=== PATIENT | male | born 1955 | race Caucasian/White ===

== ENCOUNTER → 2022-09-22 11:01 | Outpatient (BNVA) | payer MEDICARE, OTHER, SELFPAY | PROVIDERS: PCP Family Medicine; Visit Provider Family Medicine | DX: Z13.6 Encounter for screening for cardiovascular disorders (principal); J44.9 Chronic obstructive pulmonary disease, unspecified; Z86.39 Personal history of other endocrine, nutritional and metabolic disease | CPT/HCPCS: 80053; 80061; 85025 ==

== ENCOUNTER 2022-12-07 07:12 | Outpatient (CLI) | payer MEDICARE, SELFPAY ==
--- NOTE | 2022-12-07 08:00 | CT_ITS ---
WS: [id number] LDCT LUNG CANCER SCREENING TECHNIQUE: Noncontrast CT of the chest with coronal and sagittal reformatted images. CLINICAL INFORMATION: screening COMPARISON: None. DLP: 80.51 mGy.cm DIvol: Mean CTDIvol: 1.60 (mGy) All CT scans at [facility] use at least one of these dose optimization techniques: automat ed exposure control; mA and/or kV adjustment per patient size (includes targeted exams where dose is matched to clinical indication); or iterative reconstruction. FINDINGS: Tiny noncalcified nodule RIGHT lower lobe laterally. Moderate to advanced chronic emphysematous changes. Bulla formation RIGHT upper lobe. Slight patchy i nfiltrates or fibrosis RIGHT lower lobe. Subsegmental atelectasis LEFT lower lobe. Aortic calcificati on. Coronary calcification. Adrenal glands are normal. Normal GE junction. Mild thoracic curve and th oracic kyphosis. Low attenuation lesion liver partially visualized measuring 2.8 cm. Recommend further evaluation with contrast-enhanced CT abdomen pelvis with liver protocol. CT/CT lung screening [id number] IMPRESSION: Low attenuation lesion liver partially visualized measuring 2.8 cm. Recommend further evaluation with contrast-enhanced CT abdomen pelvis with ravi er protocol. LUNG-RADS: 2-Benign Appearance or Behavior FOLLOW UP: 12 Month: Continue annual screening with LDCT
== END 2022-12-07 07:13 | disposition home or self-care (01) ==
LOC: RAD 07:15
PROVIDERS: PCP Family Medicine; Visit Provider Family Medicine
DX: Z12.2 Encounter for screening for malignant neoplasm of respiratory organs (principal); Z87.891 Personal history of nicotine dependence
CPT/HCPCS: 71271

== ENCOUNTER 2023-01-01 09:22 | Outpatient (CLI) | payer MEDICARE, SELFPAY ==
[2023-01-01] MEDS: iohexol 350 mg/mL 500 mL Btl (per mL) IV (09:53)
[2023-01-01] MEDS: iohexol 350 mg/mL 500 mL Btl (per mL) PO (09:53)
--- NOTE | 2023-01-01 10:00 | CT_ITS ---
WS: [id number] CT ABDOMEN AND PELVIS WITH AND WITHOUT CONTRAST HISTORY: liver lesion TECHNIQUE: Unenhanced axial imaging first performed through the abdomen. Post contrast imaging throug h the abdomen and pelvis. Oral contrast has been provided. Sagittal and coronal reformats are submit onur. All CT scans at [facility] use at least one of these dose optimization techniques: autom ated exposure control; mA and/or kV adjustment per patient size (includes targeted exams where dose i s matched to clinical indication); or iterative reconstruction. CONTRAST: Omnipaque 300; 100 mL IV. DLP: 2103.13 mGy.cm COMPARISON: 12/07/2022. Liver is normal size. Previously described mass within the RIGHT lobe of the liver demonstrates perip heral pooling of contrast and completely fills in and becomes completely hyperdense on delayed imagin g consistent with a hemangioma. Mass measures 1.9 x 1.4 cm. No additional masses are identified. Norm al bile duct system. Lung bases are clear. Small hiatal hernia. Normal gallbladder. Normal spleen. Negative pancreas. Athe rosclerosis aorta. No adrenal mass. No renal calcification or obstruction. No adenopathy or ascites. No GI tract obstruction. Normal appendix. A few scattered sigmoid diverticula. Normal enhancement of the urinary bladder. Prostate gland enlargement with encroachment into the urin nga bladder. No destructive bone lesions. CT/CT abdomen pelvis wo/w [id number] IMPRESSION: 1. Recently described mass in the liver corresponds to a benign hemangioma, me asures 1.9 x 1.4 cm. 2. No ascites or adenopathy. 3. Atherosclerosis aorta with no aneurysm. 4. Prostate gland enlargement. 5. Diffuse constipation. 6. Mild sigmoid diverticulosis without acute diverticulitis.
== END 2023-01-01 09:23 | disposition home or self-care (01) ==
LOC: RAD 09:28
PROVIDERS: PCP Family Medicine; Visit Provider Family Medicine
DX: K76.9 Liver disease, unspecified (principal); K59.00 Constipation, unspecified; K57.30 Diverticulosis of large intestine without perforation or abscess without bleeding; I70.0 Atherosclerosis of aorta; N40.0 Benign prostatic hyperplasia without lower urinary tract symptoms
CPT/HCPCS: 74178; Q9967

== ENCOUNTER → 2023-05-25 08:30 | Outpatient (BNVA) | payer MEDICARE, SELFPAY | PROVIDERS: PCP Family Medicine; Visit Provider Family Medicine | DX: Z86.39 Personal history of other endocrine, nutritional and metabolic disease (principal); N18.31 Chronic kidney disease, stage 3a; J43.1 Panlobular emphysema; Z85.46 Personal history of malignant neoplasm of prostate | CPT/HCPCS: 80053; 80061 ==

== ENCOUNTER 2023-07-12 08:36 | Outpatient (CLI) | payer MEDICARE, SELFPAY | END 2023-07-12 08:37 | disposition home or self-care (01) | PROVIDERS: PCP Family Medicine; Visit Provider Urology | DX: C61 Malignant neoplasm of prostate (principal) | CPT/HCPCS: 36415; 84153 ==

== ENCOUNTER → 2023-11-08 10:25 | Outpatient (BNVA) | payer OTHER, SELFPAY | PROVIDERS: PCP Family Medicine; Visit Provider Family Medicine | DX: N18.31 Chronic kidney disease, stage 3a (principal); J44.9 Chronic obstructive pulmonary disease, unspecified; E78.5 Hyperlipidemia, unspecified; Z86.39 Personal history of other endocrine, nutritional and metabolic disease | CPT/HCPCS: 80053; 85025 ==

== ENCOUNTER 2023-12-10 12:55 | Outpatient (CLI) | payer MEDICARE, SELFPAY ==
--- NOTE | 2023-12-10 13:30 | CT_ITS ---
WS: [id number] LDCT LUNG CANCER SCREENING TECHNIQUE: Noncontrast CT of the chest with coronal and sagittal reformatted images. CLINICAL INFORMATION: screening COMPARISON: 2022 DLP: 63.91 mGy.cm DIvol: Mean CTDIvol: 1.20 (mGy) All CT scans at [facility] use at least one of these dose optimization techniques: automat ed exposure control; mA and/or kV adjustment per patient size (includes targeted exams where dose is matched to clinical indication); or iterative reconstruction. FINDINGS: Moderate chronic emphysematous changes. Subsegmental atelectasis in the lower lobes. Bulla formation in the RIGHT upper lobe. No new suspicious pulmonary parenchymal abnormalities. Tiny noncal cified subpleural nodule RIGHT lower lobe is stable. Normal caliber thoracic aorta. Aortic calcification. Coronary calcification. Small calcified nodule R IGHT thyroid. No axillary lymphadenopathy. No mediastinal or hilar lymphadenopathy. Small esophageal hiatal hernia. Adrenal glands are normal. Mild thoracic kyphosis. Low-attenuation le sergio in the RIGHT hepatic lobe partially evaluated previously seen on the prior CT 01/01/2023 and show n to represent a cavernous hemangioma. IMPRESSION: CT/CT lung screening [id number] LUNG-RADS: 2-Benign Appearance or Behavior FOLLOW UP: 12 Month: Continue annual screening with LDCT
== END 2023-12-10 12:56 | disposition home or self-care (01) ==
LOC: RAD 12:55
PROVIDERS: PCP Family Medicine; Visit Provider Family Medicine
DX: Z12.2 Encounter for screening for malignant neoplasm of respiratory organs (principal); Z87.891 Personal history of nicotine dependence
CPT/HCPCS: 71271

== ENCOUNTER 2023-12-13 08:53 | Outpatient (CLI) | payer MEDICARE, SELFPAY ==
--- NOTE | 2023-12-13 09:02 | XRR_ITS ---
PROCEDURE INFORMATION: Exam: XR Lumbosacral Spine Exam date and time: 12/13/2023 9:08 AM Age: 68 years old Clinical indication: Low back pain; Patient HX: Lower back pain for 1 week from picking up a dog; Additional info: Lumbar pain TECHNIQUE: Imaging protocol: Radiologic exam of the lumbosacral spine. Views: 2 or 3 views. COMPARISON: CT abdomen pelvis wo/w [id number] 01/01/2023 10:26 AM FINDINGS: Bones/joints: No acute fracture or malalignment. Moderate degenerative disc disease at L5-S1. Mild degenerative disc disease throughout the remainder of the lumbar spine. Osteopenia. Soft tissues: Unremarkable. XR/XR lumbar spine 2-3V* [id number] IMPRESSION: 1. No acute findings. 2. Degenerative changes as detailed above.
== END 2023-12-13 08:54 | disposition home or self-care (01) ==
LOC: RAD 08:55
PROVIDERS: PCP Family Medicine; Visit Provider Nurse Practitioner Family
DX: S39.012A Strain of muscle, fascia and tendon of lower back, initial encounter (principal); X50.0XXA Overexertion from strenuous movement or load, initial encounter; M51.37 Other intervertebral disc degeneration, lumbosacral region; M85.88 Other specified disorders of bone density and structure, other site
CPT/HCPCS: 72100

== ENCOUNTER 2023-12-23 13:20 | Outpatient (CLI) | payer MEDICARE, SELFPAY ==
--- NOTE | 2023-12-23 14:00 | XR_ITS ---
WS: [id number] SCREENING DEXA SCAN [employer] CLINICAL INFORMATION: osteopenia COMPARISON: None. FINDINGS: The L1-L4 bone mineral density measures 1.177 g/cm2. This corresponds to a T score score of -0.4 and Z score of 0.1. Left femoral neck bone mineral density measures 1.015 g/cm2. This corresponds to a T score of -0.6 an d Z score of 0.1. Right femoral neck bone mineral density measures 0.999 g/cm2. This corresponds to a T score -0.7of an d Z score of 0.0. Mean femoral neck bone mineral density measures 1.007 g/cm2. This corresponds to a T score of -0.7 an d Z score of 0.0. IMPRESSION: Normal bone mineralization lumbar spine and femoral necks.. Patient's FRAX calculated 10 year probability for major osteoporotic fracture is 9.8% and osteoporoti c hip fracture is 1.9%.
== END 2023-12-23 13:21 | disposition home or self-care (01) ==
LOC: RAD 13:20
PROVIDERS: PCP Family Medicine; Visit Provider Family Medicine
DX: M85.88 Other specified disorders of bone density and structure, other site (principal)
CPT/HCPCS: 77080

== ENCOUNTER 2024-01-17 10:26 | Outpatient (CLI) | payer MEDICARE, SELFPAY | END 2024-01-17 10:27 | disposition home or self-care (01) | LOC: LAB 10:27 | PROVIDERS: PCP Family Medicine; Visit Provider Nurse Practitioner Family | DX: C61 Malignant neoplasm of prostate (principal) | CPT/HCPCS: 36415; 84153 ==

== ENCOUNTER → 2024-02-09 09:21 | Outpatient (BNVA) | payer MEDICARE, SELFPAY | PROVIDERS: PCP Family Medicine; Visit Provider Surgery | DX: Z12.11 Encounter for screening for malignant neoplasm of colon (principal) | CPT/HCPCS: 99024; 99203 ==

== ENCOUNTER → 2024-03-23 10:30 | Outpatient (BNVA) | payer MEDICARE, BC, SELFPAY | PROVIDERS: PCP Family Medicine; Visit Provider Family Medicine | DX: J43.1 Panlobular emphysema (principal); M51.37 Other intervertebral disc degeneration, lumbosacral region | CPT/HCPCS: 80048 ==

== ENCOUNTER 2024-03-30 08:53 | Day surgery (SDC) | payer MEDICARE, SELFPAY ==
[2024-03-30 09:24] VITALS: BP 120/93; PULSE 98; RESP 16; TEMP 36.8; O2SAT 92; BMI 24.5
[2024-03-30] MEDS: sodium chloride 0.9% 1,000 ML 30 ML IV (09:33)
--- NOTE | 2024-03-30 09:38 | W.PM.OPSFHP ---
Same Day Surgery H&P Indication for Procedure/HPI DATE OF PROCEDURE: March 30, 2024 CHIEF COMPLAINT/INDICATIONFOR SURGICAL PROCEDURE: need for screening colonoscopy PREOP DIAGNOSIS: rectal polyp PLANNED PROCEDURE: Operation Date: 03/30/24 10:35 Proposed Procedures p Colonoscopy 66024, G0105, Z12.11(Not Applicable) - Jonh Leone MD Medications/Allergies* Home Medications Medication Instructions Recorded Confirmed Type calcium 2 tab PO DAILY 03/23/24 03/30/24 History cwcq-Y1-rghajgyx-inosit-silicon 300 mg-200 unit-37.5 mg tablet (Bone Density Calcium Plus D) Allergies/Adverse Reactions Allergy/AdvReac Type Severity Reaction Status Date / Time No Known Allergies Allergy Verified 03/23/24 10:04 Current Medications: Generic Name Dose Route Start Last Admin Trade Name Freq PRN Reason Stop Dose Admin Sodium Chloride 1,000 mls @ 30 mls/hr 03/30/24 09:30 03/30/24 09:33 Sodium Chloride 0.9% IV 30 mls/hr .Q24H NAIF Administration Pertinent History/Comorbid Conditions* Medical History (Updated 01/14/24 @ 07:15 by Asha Arauz DO) COPD (chronic obstructive pulmonary disease) CKD (chronic kidney disease) stage 3, GFR 30-59 ml/min History of basal cell carcinoma (BCC) 2021 History of prostate cancer History of prediabetes History of mixed hyperlipidemia Surgical History (Updated 09/24/22 @ 08:25 by Asha Arauz DO) History of prostate surgery Family History (Updated 02/09/24 @ 09:32 by PATO Garcia) Breast cancer Mother Sister Social History Smoking and tobacco/nicotine status: former use of tobacco/nicotine Second hand smoke exposure: No Pertinent Exam Findings alert, oriented x 3 and clear to auscultation bilaterally Recommendations Surgery/Procedure today Coding Level of Care Code Acute Code for Chg Fwd
--- NOTE | 2024-03-30 10:46 | ANES.PREANE2 ---
Pre-Anesthetic Assessment Height/Weight: Height 1.8 m Weight 79.832 kg Temp Pulse Resp BP Pulse Ox O2 Del Method 98.2 F 98 16 120/93 92 Room Air 03/30/24 09:24 03/30/24 09:24 03/30/24 09:24 03/30/24 09:24 03/30/24 09:24 03/30/24 09:24 Preop Diagnosis: rectal polyp Operation Date: 03/30/24 10:35 Proposed Procedures p Colonoscopy 83712, G0105, Z12.11(Not Applicable) - Jonh Leone MD Familial anesthetic complications: None Was Beta Ren[place] taken within 24 hours: N/A Was Clonidine taken within 24 hours: N/A Last intake: Intake Last Liquid Date 03/29/24 Last Liquid Time 22:00 Last Solid Date 03/28/24 Last Solid Time 21:00 Social No alcohol and No tobacco (Quit 5 years ago, smoked 1-3 ppd x30 years) Exam alert, oriented x 3, clear to auscultation bilaterally and regular rate & rhythm Airway Submandibular: within normal limits Cervical ROM: within normal limits Mallampati: Class II Dentition: false History/ROS No significant history except as noted and No significant complaints Pulmonary Chronic Obstructive Pulmonary Disease CV/HEM Coronary Artery Disease Chronic Renal Insufficiency (CKD Stage 3) Hepatic None reported Metabolic Hyperlipidemia Musc/skel Lower Back Pain and Osteoarthritis/DJD Pinched nerve left hip Neuropsych None reported Anesthetic Plan ASA status: 2 Anesthesia: Anesthesia Evaluation, General and MAC Risk of > 500 ml blood loss (7ml/kg in children): No Medications/Allergies Home Medications Medication Instructions Recorded Confirmed Last Taken Type atorvastatin 80 mg tablet 80 mg PO DAILY #90 tabs 05/26/23 03/30/24 03/29/24 Rx albuterol sulfate 2.5 mg/3 mL 2.5 mg (3 mL) inhalation Q4H PRN 11/08/23 03/30/24 Unknown Rx (0.083 %) solution for nebulization shortness of breath or wheezing #180 mL albuterol sulfate 90 mcg/actuation 2 puff inhalation Q6H PRN 11/08/23 03/30/24 Unknown Rx aerosol inhaler (Ventolin HFA) shortness of breath or wheezing #8.5 grams calcium 2 tab PO DAILY 03/23/24 03/30/24 03/29/24 History xbxr-K6-wgyggcdy-inosit-silicon 300 mg-200 unit-37.5 mg tablet (Bone Density Calcium Plus D) fluticasone fur. 200 mcg-umeclid 1 inh inhalation Q24H #60 ea 03/23/24 03/30/24 03/29/24 Rx 62.5 mcg-vilant 25 mcg inhalat.powder (Trelegy Ellipta) Allergies Allergy/AdvReac Type Severity Reaction Status Date / Time No Known Allergies Allergy Verified 03/23/24 10:04 Current Medications Generic Name Dose Route Start Last Admin Trade Name Freq PRN Reason Stop Dose Admin Sodium Chloride 1,000 mls @ 30 mls/hr 03/30/24 09:30 03/30/24 09:33 Sodium Chloride 0.9% IV 30 mls/hr .Q24H NAIF Administration PFSH Anesthesia Medical History COPD (chronic obstructive pulmonary disease) CKD (chronic kidney disease) stage 3, GFR 30-59 ml/min History of basal cell carcinoma (BCC) 2021 History of prostate cancer History of prediabetes History of mixed hyperlipidemia Surgical History History of prostate surgery Family History Mother Breast cancer Sister Breast cancer Social History Smoking and tobacco/nicotine status: former use of tobacco/nicotine Second hand smoke exposure: No Data Anesthesia Cardiac Studies: No Data to Display
[2024-03-30 12:03] VITALS: BP 142/94; PULSE 79; RESP 14; TEMP 36.5; O2SAT 98
[2024-03-30 12:18] VITALS: BP 140/74; PULSE 84; RESP 18; O2SAT 97
--- NOTE | 2024-03-30 12:45 | ANE.PACU2 ---
Inpatient post-anesthesia follow up: Airway intact: Yes Vital signs: Temperature 97.7 F Pulse Rate 84 Respiratory Rate 18 Blood Pressure 140/74 Pulse Oximetry 97 Oxygen Delivery Me thod Room Air Oxygen Flow Rate Fraction of Inspir ed Oxygen Hydration adequate: Yes Nausea and vomiting: No Pain level: 1 Mental status: Baseline
== END 2024-03-30 12:46 | disposition home or self-care (01) ==
PROVIDERS: PCP Family Medicine; Visit Provider Surgery
PROC: 0DJD8ZZ Inspection of Lower Intestinal Tract, Via Natural or Artificial Opening Endoscopic (ICD-10-PCS; CPT 45330; 2024-03-30 10:35)
DX: Z12.11 Encounter for screening for malignant neoplasm of colon (principal); D12.8 Benign neoplasm of rectum; J44.9 Chronic obstructive pulmonary disease, unspecified; N18.30 Chronic kidney disease, stage 3 unspecified; E78.2 Mixed hyperlipidemia; Z85.46 Personal history of malignant neoplasm of prostate; Z87.891 Personal history of nicotine dependence; I25.10 Atherosclerotic heart disease of native coronary artery without angina pectoris
CPT/HCPCS: 45338; 88305; J2704; J7030

== ENCOUNTER → 2024-04-12 13:03 | Outpatient (BNVA) | payer MEDICARE, SELFPAY | PROVIDERS: PCP Family Medicine Adult Medicine; Visit Provider Surgery | DX: Z09 Encounter for follow-up examination after completed treatment for conditions other than malignant neoplasm | CPT/HCPCS: 99213 ==

== ENCOUNTER 2024-04-19 07:15 | Outpatient (CLI) | payer MEDICARE, SELFPAY ==
--- NOTE | 2024-04-19 07:15 | MR_ITS ---
WS: [id number] MRI LUMBAR SPINE NONCONTRAST HISTORY: low back pain with left-sided sciatica COMPARISON: None available. TECHNIQUE: Sagittal and axial multisequence imaging is submitted. Slight increase in the thoracic kyphosis. Normal lumbar alignment with no compression fractures or marrow edema. Disc spaces and vertebral body heights are well-preserved. Conus terminates normally at L1-2 disc level. L1-L2: Normal. L2-L3: Normal. L3-L4: Mild annular disc bulging. Mild ligamentum flavum and facet arthritis. No disc contact on the nerve roots. L4-L5: Mild disc bulging. Disc is bulging asymmetric to the LEFT and there is a LEFT contacting the L EFT lateral thecal sac and the traversing contacting the LEFT lateral thecal sac and the traversing L EFT L5 nerve root. There is lesser contact into the subarticular recess on the RIGHT with encroachmen t upon the traversing RIGHT L5 nerve root also. Mild central stenosis. Mild foraminal stenosis. Degen erative fluid in the LEFT facet joint. L5-S1: Mild annular disc bulging. Disc encroachment upon the S1 nerve roots bilaterally. Very mild lott barticular recess and foraminal stenosis. Paravertebral soft tissues are negative. MR/MR lumbar spine wo con* [id number] IMPRESSION: 1. No acute lumbar spine fracture. 2. L4-5: Moderate-sized LEFT paracentral and proximal foraminal disc protrusio n with significant contact and displacement on the traversing LEFT L5 nerve ronnie t. 3. L4-5: Disc bulging extending into the subarticular recesses. There is addit ional contact on the RIGHT L5 nerve root but to a lesser extent than on the LEF T. Mild foraminal stenosis bilaterally. 4. L5-S1: Mild subarticular recess and foraminal disc encroachment.
== END 2024-04-19 07:16 | disposition home or self-care (01) ==
PROVIDERS: PCP Family Medicine Adult Medicine; Visit Provider Family Medicine
DX: M54.42 Lumbago with sciatica, left side (principal); M51.36 Other intervertebral disc degeneration, lumbar region; M51.26 Other intervertebral disc displacement, lumbar region; M48.061 Spinal stenosis, lumbar region without neurogenic claudication; M51.37 Other intervertebral disc degeneration, lumbosacral region; M48.07 Spinal stenosis, lumbosacral region; M47.896 Other spondylosis, lumbar region
CPT/HCPCS: 72148

== ENCOUNTER → 2024-05-02 09:40 | Outpatient (BNVA) | payer MEDICARE, SELFPAY | PROVIDERS: PCP Family Medicine Adult Medicine; Referring Provider Family Medicine Adult Medicine; Visit Provider Orthopaedic Surgery | DX: M54.42 Lumbago with sciatica, left side (principal); M51.37 Other intervertebral disc degeneration, lumbosacral region | CPT/HCPCS: 36415; 72110; 80053; 81003; 81015; 85025; 99204 ==

== ENCOUNTER → 2024-05-23 08:43 | Outpatient (BNVA) | payer MEDICARE, SELFPAY | PROVIDERS: PCP Family Medicine Adult Medicine; Visit Provider Family Medicine | DX: Z01.818 Encounter for other preprocedural examination (principal); R94.31 Abnormal electrocardiogram [ECG] [EKG] | CPT/HCPCS: 93005 ==

== ENCOUNTER → 2024-05-24 15:26 | Outpatient (BNVA) | payer MEDICARE, SELFPAY | PROVIDERS: PCP Family Medicine Adult Medicine; Visit Provider Family Medicine | DX: Z01.818 Encounter for other preprocedural examination (principal) | CPT/HCPCS: 93005 ==

== ENCOUNTER 2024-05-26 06:07 | Day surgery (SDC) | payer MEDICARE, SELFPAY ==
[2024-05-26] VITALS (12 sets, daily range): BP systolic 120–173; BP diastolic 81–103; PULSE 72–85; RESP 8–23; TEMP 36.1–36.3; O2SAT 91–100; BMI 25.0
[2024-05-26] MEDS: sodium chloride 0.9% 1,000 ML 30 ML IV (06:35)
--- NOTE | 2024-05-26 08:08 | ANES.PREANE2 ---
Pre-Anesthetic Assessment Height/Weight: Height 1.8 m Temp Pulse Resp BP Pulse Ox O2 Del Method 97.3 F L 72 18 152/103 96 Room Air 05/26/24 06:25 05/26/24 06:25 05/26/24 06:25 05/26/24 06:25 05/26/24 06:25 05/26/24 06:25 Preop Diagnosis: Lumbar stenosis with neurogenic claudication Operation Date: 05/26/24 08:00 Proposed Procedures p Lumbar Spine Decompression Lumbar Decompression(Not Applicable) - Lc Ray, DO Was Beta Reno taken within 24 hours: N/A Last intake: Intake Last Liquid Date 05/25/24 Last Liquid Time 21:30 Last Solid Date 05/25/24 Last Solid Time 16:00 Social No alcohol and No tobacco Exam alert, oriented x 3, clear to auscultation bilaterally and regular rate & rhythm Airway Submandibular: within normal limits Cervical ROM: within normal limits Mallampati: Class II Dentition: false Pulmonary Chronic Obstructive Pulmonary Disease CV/HEM None reported Metabolic Hyperlipidemia Anesthetic Plan ASA status: 3 Anesthesia: General Medications/Allergies Home Medications Medication Instructions Recorded Confirmed Last Taken Type albuterol sulfate 2.5 mg/3 mL 2.5 mg (3 mL) inhalation Q4H PRN 11/08/23 05/26/24 Unknown Rx (0.083 %) solution for nebulization shortness of breath or wheezing #180 mL albuterol sulfate 90 mcg/actuation 2 puff inhalation Q6H PRN 11/08/23 05/26/24 05/25/24 Rx aerosol inhaler (Ventolin HFA) shortness of breath or wheezing #8.5 grams fluticasone fur. 200 mcg-umeclid 1 inh inhalation Q24H #60 ea 03/23/24 05/26/24 05/25/24 Rx 62.5 mcg-vilant 25 mcg inhalat.powder (Trelegy Ellipta) atorvastatin 80 mg tablet 80 mg PO DAILY #90 tabs 05/16/24 05/26/24 05/18/24 Rx Allergies Allergy/AdvReac Type Severity Reaction Status Date / Time No Known Allergies Allergy Verified 05/25/24 12:40 Current Medications Generic Name Dose Route Start Last Admin Trade Name Freq PRN Reason Stop Dose Admin Sodium Chloride 1,000 mls @ 30 mls/hr 05/26/24 06:30 05/26/24 06:35 Sodium Chloride 0.9% IV 05/27/24 06:29 30 mls/hr .Q24H NAIF Administration PFSH Anesthesia Medical History Protruded lumbar disc COPD (chronic obstructive pulmonary disease) CKD (chronic kidney disease) stage 3, GFR 30-59 ml/min History of basal cell carcinoma (BCC) 2021 History of prostate cancer History of prediabetes History of mixed hyperlipidemia Surgical History Hx of colonoscopy with polypectomy [place] in ~2020, 03/30/[address] Leone but was unable to do a full colonoscopy due to severe diverticulosis. History of prostate surgery Family History Mother Breast cancer Sister Breast cancer Social History Smoking and tobacco/nicotine status: never used tobacco/nicotine Second hand smoke exposure: No Data Anesthesia Cardiac Studies: No Data to Display
--- NOTE | 2024-05-26 08:33 | W.PM.OPSUD ---
Surgery/Procedure H&P Update DATE OF PROCEDURE: May 26, 2024 DATE H&P PERFORMED: 05/23/24 H&P UPDATE INFORMATION: I have reviewed H&P completed within last 30 days, I have examined patient prior to procedure and No changes to prior documentation PREOP DIAGNOSIS: Lumbar stenosis with neurogenic claudication PLANNED PROCEDURE: Operation Date: 05/26/24 08:00 Proposed Procedures p Lumbar Spine Decompression Lumbar Decompression(Not Applicable) - Lc Ray DO
[2024-05-26] MEDS: ceFAZolin 2,000 mg SDV 2000 MG IVP (09:07)
[2024-05-26] MEDS: lidocaine-epi 1% 20 mL INJ 10 ML INJECTION (10:01)
--- NOTE | 2024-05-26 10:18 | PM.OP ---
Operative Report Date of procedure: May 26, 2024 Pre-op diagnosis: Lumbar stenosis with neurogenic claudication Post-op diagnosis: same Procedure done: L4-5 laminectomy with partial facetectomy and discectomy Surgeon: Lc Ray DO Estimated blood loss (mL): 15 Procedure: L4-5 laminectomy with partial facetectomy and discectomy Patient is brought to the operative suite. After undergoing anesthesia they are placed in the prone position. All areas of impingement are well padded. Patient is then prepped and draped in the normal sterile fashion. A skin incision is made over the L4/5 level. This is confirmed under c-arm guidance. A series of dilators are passed and the tubular retractor is docked on the L5 lamina. A bovie is used to clear the soft tissue off the lamina and the L 4/5 facet joint. A high speed von is then used to perform the laminectomy and take down the medial aspect of the L 4/5 facet joint. A kerrison rongeure was then used to take down the remaining lamina and smooth the edge of the laminectomy up to the point where the ligamentum flavum attaches. Attention was then brought to the medial aspect of the facet joint. The remaining medial aspect of the superior and inferior aspect of the facet joint were taken down with the kerrison from the pedicle of L4 to L 5. The facet joint had significant hypertrophy. Attention was then brought to the Ligamentum Flavum. The ligament was taken down from the lamina of L4 to L5 and out medially to the remaining facet joint. The ligament was thickened. The dura was then exposed. The dura was in good repair. The L5 nerve was root retracted medially with a Kain retractor. The disc was identified a small hole was made in the annulus with a curved curette. Micropituitary was used to take out loose fragments. And then the disc base was irrigated and large tonsils of disc were removed. The L4 nerve was then traced with a curette out the L4/5 foramen and found to be adequately decompressed. The L5 nerve was traced with a curette around the L5 pedicle. The lateral recess was opened with a kerrison helping to further decompress the L5 nerve. Wound is then irrigated copiously with saline and surgiflo is used to stop any bleeding. The tubular retractor is removed and the wound is closed with vicryl and monocryl suture. Glue is then used to protect the wound. A sterile dressing is then placed. Patient was then placed in the supine position and transferred to the PACU in stable condition.
[2024-05-26] MEDS: meperidine 50 mg/mL INJ 12.5 MG IVP (11:23)
--- NOTE | 2024-05-26 12:01 | XR_ITS ---
WS: [id number] Lumbar spine, C-arm fluoroscopy views, 05/26/2024 Clinical Data: or pic, decompression Comparison: Lumbar spine, 05/02/2024 Findings: Dr. Ray performed a lumbar decompression. XR/XR lumbar spine 1V [id number] Impression: Lumbar decompression.
--- NOTE | 2024-05-26 12:42 | ANE.PACU2 ---
Inpatient post-anesthesia follow up: Airway intact: Yes Vital signs: Temperature 97.0 F Pulse Rate 80 Respiratory Rate 17 Blood Pressure 146/81 Pulse Oximetry 91 Oxygen Delivery Me thod Room Air Oxygen Flow Rate 6 Fraction of Inspir ed Oxygen Hydration adequate: Yes Nausea and vomiting: No Pain level: controlled Mental status: Baseline
== END 2024-05-26 12:32 | disposition home or self-care (01) ==
PROVIDERS: PCP Family Medicine Adult Medicine; Visit Provider Orthopaedic Surgery
PROC: (CPT 63005; principal; 2024-05-26 08:00)
DX: M48.062 Spinal stenosis, lumbar region with neurogenic claudication (principal); J44.9 Chronic obstructive pulmonary disease, unspecified; E78.5 Hyperlipidemia, unspecified; N18.30 Chronic kidney disease, stage 3 unspecified; Z85.46 Personal history of malignant neoplasm of prostate; E78.2 Mixed hyperlipidemia
CPT/HCPCS: 63047; 72020; 76000; J0131; J0690; J1100; J2175; J2405; J2704; J3010; J3490; J7030

== ENCOUNTER → 2024-06-15 12:21 | Outpatient (BNVA) | payer MEDICARE, SELFPAY | PROVIDERS: PCP Family Medicine Adult Medicine; Visit Provider Orthopaedic Surgery | DX: Z09 Encounter for follow-up examination after completed treatment for conditions other than malignant neoplasm (principal) | CPT/HCPCS: 99024 ==

== ENCOUNTER 2024-07-10 11:00 | Oncology outpatient (recurring) (ONCR) | payer MEDICARE, SELFPAY ==
--- NOTE | 2024-07-10 12:58 | N.ONRAD NP_ITS ---
Radiation Oncology New Patient Visit Patient: Dat Littlejohn MR#: [id number] : 1955> Age: 69> Sex: Male> Dictated by: Dr. Mara Carpio Date of Service: 07/10/2024 Referring Physician(s) : Dr. Corea Diagnosis: Adenocarcinoma the prostate Kulpmont score 4+7/John score 3+3 Radiotherapy to date: Summary > No prior radiation therapy. Chief Complaint / History of Present Illness: Mr. Barker is 69-year-old gentleman who was followed for his prostate cancer when he lived in [place]. He recently in the last year moved here to [place]. He has had a recent biopsy in March which confirmed his Kulpmont score 6 and 7 adenocarcinoma the prostate which was low-volume all located on the left side was less than 5% of 2 cores positive. He has had a bone scan and CT scan which did not show any metastatic disease. He is here today to discuss radiation as a treatment option. Current Medications: albuterol sulfate 2.5 mg (3 mL) inhalation Q4H PRN albuterol sulfate 90 mcg/actuation (Ventolin HFA) 2 puffs inhalation Q6H PRN atorvastatin 80 mg PO DAILY hihulmcoupd-vlshauqvn-pidquwfh 200-62.5-25 mcg (Trelegy Ellipta) 1 inh inhalation Q24H Allergies: NKA Medical History: Protruded lumbar disc COPD (chronic obstructive pulmonary disease) CKD (chronic kidney disease) stage 3, GFR 30-59 ml/min History of basal cell carcinoma (BCC) 2021 History of prostate cancer History of prediabetes History of mixed hyperlipidemia Surgical History Hx of colonoscopy with polypectomy [place] in ~2020, 03/30/[address] Leone but was unable to do a full colonoscopy due to severe diverticulosis. History of prostate surgery Surgical History: laminectomy, T&A Family History: MotherBreast cancer, SisterBreast cancer Social History: Smoking and tobacco/nicotine status: never used tobacco/nicotine Second hand smoke exposure: No Current Complaints / Review of Systems: . Vital Signs: Performed on 07/10/2024 11:11 AM BMI - 25.161 kg/m2 (high), Height - 71 in, Weight - 180.4 lbs, Temperature - 97.5 f, Pulse - 70 /min, Respiration - 18 /min, O2 Sat - 96 %, Pain - 0, Fatigue - 0 and BP - 141/ 88 mm(hg)(high/). General: Patient is in no apparent distress. He is companied by his . HEENT: Normocephalic atraumatic. Pupils are equal, sclera clear, extraocular muscles intact Pulmonary: Respiratory rate is regular nonlabored Cardiovascular: Regular rate and rhythm Abdomen: Abdomen is flat with minimal adipose tissue Extremities: Without clubbing cyanosis or edema Neurological: Alert and orient x 3. Gait and speech within normal limits Psychological: Affect appropriate for current situation Pathology: Adenocarcinoma prostate John score 6 and 7 Imaging: See HPI Impression: Adenocarcinoma the prostate Kulpmont score 6 and 7 with PSA 5.28 all scans negative for metastatic disease Plan: I reviewed with Mr. Barker his past history. We talked about the results of his scans. Reviewed the role of radiation and prostate cancer. We talked about the simulation process. We reviewed the daily treatment regiment. We discussed the risks and side effects both acute and long-term. After some discussion and answering additional questions he at this point has elected proceed with the radiation. Will call Dr. Corea's office and see if we can get him set up in the next week or 2 to have his fiducials and [employer] placed. After that we will have him return to undergo simulation. Plan for a 5 and half week course of treatment to the prostate only. Signed by: 07/10/2024 12:55:54 PM <<Signature on File>> Time spent with patient:45 CPT Code: CPT Code:
== END 2024-08-03 23:59 | disposition home or self-care (01) ==
PROVIDERS: PCP Family Medicine Adult Medicine; Visit Provider Radiology Radiation Oncology
DX: C61 Malignant neoplasm of prostate (principal)
CPT/HCPCS: 99205

== ENCOUNTER → 2024-07-13 10:09 | Outpatient (BNVA) | payer MEDICARE, SELFPAY | PROVIDERS: PCP Family Medicine Adult Medicine; Visit Provider Orthopaedic Surgery | DX: Z98.890 Other specified postprocedural states (principal) | CPT/HCPCS: 99024 ==

== ENCOUNTER → 2024-08-24 09:48 | Outpatient (BNVA) | payer MEDICARE, SELFPAY | PROVIDERS: PCP Family Medicine Adult Medicine; Visit Provider Orthopaedic Surgery | DX: Z98.890 Other specified postprocedural states (principal) | CPT/HCPCS: 99024 ==

== ENCOUNTER 2024-10-03 13:39 | Oncology outpatient (recurring) (ONCR) | payer MEDICARE, SELFPAY ==
--- NOTE | 2024-09-26 11:34 | ONCRAD TMN_ITS ---
Radiation Oncology Weekly Treatment Management Patient: Dat Littlejohn MR#: [id number] : 1955 Attending Physician: Dr. Mara Carpio Date of Service: 09/26/2024 Fractions: 2 out of 28 Referring Physician(s) : Diagnosis: C61 - Malignant neoplasm of prostate, Diagnosed 09/14/2024 (Active) Radiotherapy to date: Course: Prostate/sv, Treatment Site: Prostate/sv, Ref. ID: [id number], Energy: 15X, Dose/Fx (cGy): 250, #Fx: 2 / , Dose Correction (cGy): 0, Total Dose Delivered (cGy): 500, Start Date: 09/25/2024, Elapsed Days: 1 Reason for visit: The patient is being seen today as part of their regularly scheduled weekly on treatment visits to assess for acute toxicities from radiotherapy. Review of Systems: Patient had a few questions today all of which were answered Vital Signs: Performed on 09/26/2024 10:26 AM BMI - 23.933 kg/m2 (high), Height - 71 in, Weight - 171.6 lbs, Temperature - 98.0 f, Pulse - 84 /min, Respiration - 16 /min, O2 Sat - 96 %, Pain - 0, Fatigue - 0 and BP - 154/ 68 mm(hg)(high/). Physical Exam: No changes on exam Imaging: Radiation therapy imaging related to accurate target localization (i.e. KV, MV and CBCT) was reviewed. Appropriate changes, if any, were made to ensure treatment accuracy. Plan: Will continue with his treatments as planned Signed by: Dr. Mara Carpio 09/26/2024 11:32:43 AM
--- NOTE | 2024-10-05 09:08 | ONCRAD TMN_ITS ---
Radiation Oncology Weekly Treatment Management Patient: Annetta Anderson MR#: [id number] : 1955> Attending Physician: Dr. Mara Carpio Date of Service: 10/03/2024 Fractions: 6 out of 28 Referring Physician(s) : Diagnosis: C61 - Malignant neoplasm of prostate, Diagnosed 09/14/2024 (Active) Radiotherapy to date: Course: Prostate/sv, Treatment Site: Prostate/sv, Ref. ID: [id number], Energy: 15X, Dose/Fx (cGy): 250, #Fx: , Dose Correction (cGy): 0, Total Dose Delivered (cGy): 1,500, Start Date: 09/25/2024, Elapsed Days: 8 Reason for visit: The patient is being seen today as part of their regularly scheduled weekly on treatment visits to assess for acute toxicities from radiotherapy. Review of Systems: Patient had frequent stools which are soft. He has 2-3 a day. Vital Signs: Performed on 10/03/2024 2:27 PM BMI - 24.185 kg/m2 (high), Height - 71 in, Weight - 173.4 lbs, Temperature - 97.9 f, Pulse - 74 /min, Respiration - 18 /min, O2 Sat - 94 % (low), Pain - 0, Fatigue - 0 and BP - 160/ 94 mm(hg)(high). Physical Exam: No changes on exam Imaging: Radiation therapy imaging related to accurate target localization (i.e. KV, MV and CBCT) was reviewed. Appropriate changes, if any, were made to ensure treatment accuracy. Plan: I reviewed with him that the frequent stools is normal for the changes to be seen with radiation. I cautioned him about taking anything to slow them down and less he became sore enough that he needed to. I reminded him that 1 dose of Imodium may be enough to last 2 or 3 days. Will otherwise continue with his treatments as planned Signed by: Dr. Mara Carpio 10/05/2024 9:05:50 AM
== END 2024-10-03 23:59 | disposition home or self-care (01) ==
PROVIDERS: PCP Family Medicine Adult Medicine; Visit Provider Radiology Radiation Oncology
DX: Z51.0 Encounter for antineoplastic radiation therapy (principal); C61 Malignant neoplasm of prostate
CPT/HCPCS: 77300; 77301; 77334; 77338; 77385; 99024

== ENCOUNTER 2024-10-27 07:22 | Oncology outpatient (recurring) (ONCR) | payer MEDICARE, SELFPAY ==
--- NOTE | 2024-10-10 14:07 | ONCRAD TMN_ITS ---
Radiation Oncology Weekly Treatment Management Patient: Dat Littlejohn MR#: [id number] : 1955 Attending Physician: Dr. Mara Carpio Date of Service: 10/10/2024 Fractions 10 out of 28 Referring Physician(s) : Diagnosis: C61 - Malignant neoplasm of prostate, Diagnosed 09/14/2024 (Active) Radiotherapy to date: Course: Prostate/sv, Treatment Site: Prostate/sv, Ref. ID: [id number], Energy: 15X, Dose/Fx (cGy): 250, #Fx: , Dose Correction (cGy): 0, Total Dose Delivered (cGy): 2,500, Start Date: 09/25/2024, Elapsed Days: 15 Reason for visit: The patient is being seen today as part of their regularly scheduled weekly on treatment visits to assess for acute toxicities from radiotherapy. Review of Systems: Patient denies any complaints other than weak stream Vital Signs: Performed on 10/10/2024 1:42 PM BMI - 24.157 kg/m2 (high), Height - 71 in, Weight - 173.2 lbs, Temperature - 97.2 f, Pulse - 73 /min, Respiration - 18 /min, O2 Sat - 98 %, Pain - 0, Fatigue - 0 and BP - 145/ 78 mm(hg)(high/). Physical Exam: No changes on exam Imaging: Radiation therapy imaging related to accurate target localization (i.e. KV, MV and CBCT) was reviewed. Appropriate changes, if any, were made to ensure treatment accuracy. Plan: Will continue with treatments as planned Signed by: Dr. Mara Carpio 10/10/2024 2:06:54 PM
--- NOTE | 2024-10-17 14:19 | ONCRAD TMN_ITS ---
Radiation Oncology Weekly Treatment Management Patient: aDt Littlejohn MR#: [id number] : 1955 Attending Physician: Dr. Mara Carpio Date of Service: 10/17/2024 Fractions: 14 out of 28 Referring Physician(s) : Diagnosis: C61 - Malignant neoplasm of prostate, Diagnosed 09/14/2024 (Active) Radiotherapy to date: Course: Prostate/sv, Treatment Site: Prostate/sv, Ref. ID: [id number], Energy: 15X, Dose/Fx (cGy): 250, #Fx: , Dose Correction (cGy): 0, Total Dose Delivered (cGy): 3,500, Start Date: 09/25/2024, Elapsed Days: 22 Reason for visit: The patient is being seen today as part of their regularly scheduled weekly on treatment visits to assess for acute toxicities from radiotherapy. Review of Systems: He denies any changes in bladder habits. He does have softer stools than normal. Vital Signs: Performed on 10/17/2024 2:00 PM BMI - 23.906 kg/m2 (high), Height - 71 in, Weight - 171.4 lbs, Temperature - 97.9 f, Pulse - 77 /min, Respiration - 16 /min, O2 Sat - 96 %, Pain - 0, Fatigue - 0 and BP - 139/ 84 mm(hg). Physical Exam: No changes on exam Imaging: Radiation therapy imaging related to accurate target localization (i.e. KV, MV and CBCT) was reviewed. Appropriate changes, if any, were made to ensure treatment accuracy. Plan: Will continue with treatments as planned Signed by: Dr. Mara Carpio 10/17/2024 2:18:53 PM
--- NOTE | 2024-10-24 14:23 | ONCRAD TMN_ITS ---
Radiation Oncology Weekly Treatment Management Patient: Annetta Anderson MR#: [id number] : 1955> Attending Physician: Dr. Mara Carpio Date of Service: 10/24/2024 Fractions: 19 out of 28 Referring Physician(s) : Diagnosis: C61 - Malignant neoplasm of prostate, Diagnosed 09/14/2024 (Active) Radiotherapy to date: Course: Prostate/sv, Treatment Site: Prostate/sv, Ref. ID: [id number], Energy: 15X, Dose/Fx (cGy): 250, #Fx: , Dose Correction (cGy): 0, Total Dose Delivered (cGy): 4,750, Start Date: 09/25/2024, Elapsed Days: 29 Reason for visit: The patient is being seen today as part of their regularly scheduled weekly on treatment visits to assess for acute toxicities from radiotherapy. Review of Systems: Patient denies any complaints Vital Signs: Performed on 10/24/2024 1:57 PM BMI - 23.71 kg/m2 (high), Height - 71 in, Weight - 170 lbs, Temperature - 97.5 f, Pulse - 73 /min, Respiration - 18 /min, O2 Sat - 97 %, Pain - 0, Fatigue - 0 and BP - 148/ 82 mm(hg)(high/). Physical Exam: No changes on exam Imaging: Radiation therapy imaging related to accurate target localization (i.e. KV, MV and CBCT) was reviewed. Appropriate changes, if any, were made to ensure treatment accuracy. Plan: Continue with treatments as planned Signed by: Dr. Mara Carpio 10/24/2024 2:22:10 PM
== END 2024-10-27 23:59 | disposition home or self-care (01) ==
PROVIDERS: PCP Family Medicine Adult Medicine; Visit Provider Radiology Radiation Oncology
DX: Z51.0 Encounter for antineoplastic radiation therapy (principal); C61 Malignant neoplasm of prostate
CPT/HCPCS: 77336; 77385; 99024

== ENCOUNTER 2024-11-03 07:41 | Oncology outpatient (recurring) (ONCR) | payer MEDICARE, SELFPAY ==
--- NOTE | 2024-10-31 14:08 | ONCRAD TMN_ITS ---
Radiation Oncology Weekly Treatment Management Patient: Dat Littlejohn MR#: [id number] : 1955 Attending Physician: Dr. Mara Carpio Date of Service: 10/31/2024 Fractions: 24 out of 28 Referring Physician(s) : Diagnosis: C61 - Malignant neoplasm of prostate, Diagnosed 09/14/2024 (Active) Radiotherapy to date: Course: Prostate/sv, Treatment Site: Prostate/sv, Ref. ID: [id number], Energy: 15X, Dose/Fx (cGy): 250, #Fx: , Dose Correction (cGy): 0, Total Dose Delivered (cGy): 6,000, Start Date: 09/25/2024, Elapsed Days: 36 Reason for visit: The patient is being seen today as part of their regularly scheduled weekly on treatment visits to assess for acute toxicities from radiotherapy. Review of Systems: Patient remains asymptomatic Vital Signs: Performed on 10/31/2024 1:48 PM BMI - 23.822 kg/m2 (high), Height - 71 in, Weight - 170.8 lbs, Temperature - 97 f, Pulse - 61 /min, Respiration - 16 /min, O2 Sat - 96 %, Pain - 0, Fatigue - 0 and BP - 155/ 87 mm(hg)(high/). Physical Exam: No changes on exam Imaging: Radiation therapy imaging related to accurate target localization (i.e. KV, MV and CBCT) was reviewed. Appropriate changes, if any, were made to ensure treatment accuracy. Plan: Will continue with treatments as planned Signed by: Dr. Mara Carpio 10/31/2024 2:06:56 PM
== END 2024-11-03 23:59 | disposition home or self-care (01) ==
PROVIDERS: PCP Family Medicine Adult Medicine; Visit Provider Radiology Radiation Oncology
DX: Z51.0 Encounter for antineoplastic radiation therapy (principal); C61 Malignant neoplasm of prostate; R39.12 Poor urinary stream
CPT/HCPCS: 77336; 77385; 99024

== ENCOUNTER 2024-11-06 07:57 | Oncology outpatient (recurring) (ONCR) | payer MEDICARE, SELFPAY ==
--- NOTE | 2024-11-06 10:26 | N.ONRD TS_ITS ---
Radiation Oncology Treatment Summary Patient: Annetta>Monica MR#: [id number] : 1955> Age: 69> Sex: Male Dictated by: Dr. Mara Carpio Date of Service: 11/06/2024 Referring Physician(s) : Diagnosis: C61 - Malignant neoplasm of prostate, Diagnosed 09/14/2024 (Active) Radiotherapy to Date: Course: Prostate/sv, Treatment Site: Prostate/sv, Ref. ID: [id number], Energy: 15X, Dose/Fx (cGy): 250, #Fx: , Dose Correction (cGy): 0, Total Dose Delivered (cGy): 7,000, Start Date: 09/25/2024, End Date: 11/06/2024, Elapsed Days: 42 Clinical Summary: The patient tolerated RT well. He had minimal changes in bowel or bladder habits. He will return in 1 month with a PSA Plan: End of treatment today. Continue on the above medication until the skin reaction resolves. Follow up in one month. Signed by: Dr. Mara Carpio>11/06/2024 10:25:21 AM <<Signature on File>>
== END 2024-12-01 23:59 | disposition home or self-care (01) ==
PROVIDERS: PCP Family Medicine Adult Medicine; Visit Provider Radiology Radiation Oncology
DX: Z51.0 Encounter for antineoplastic radiation therapy (principal); C61 Malignant neoplasm of prostate; R39.12 Poor urinary stream
CPT/HCPCS: 77336; 77385; 99024

== ENCOUNTER → 2024-11-29 07:59 | Outpatient (BNVA) | payer MEDICARE, SELFPAY | PROVIDERS: PCP Family Medicine; Visit Provider Family Medicine | DX: R73.03 Prediabetes (principal); E78.00 Pure hypercholesterolemia, unspecified; K76.9 Liver disease, unspecified | CPT/HCPCS: 80061; 83036; 84443 ==

== ENCOUNTER 2024-12-11 10:00 | Oncology outpatient (recurring) (ONCR) | payer MEDICARE, SELFPAY ==
--- NOTE | 2024-12-04 08:25 | ONCRAD EPV_ITS ---
Radiation Oncology Established Patient Visit Patient: Annetta Daugherty [id number] : 1955> Age: 69> Sex: Male> Dictated by: Ramón Smart Date of Service: 12/04/2024 Referring Physician(s) : Diagnosis: C61 - Malignant neoplasm of prostate, Diagnosed 09/14/2024 (Active) Radiotherapy to Date: Course: Prostate/sv, Treatment Site: Prostate/sv, Ref. ID: [id number], Energy: 15X, Dose/Fx (cGy): 250, #Fx: , Dose Correction (cGy): 0, Total Dose Delivered (cGy): 7,000, Start Date: 09/25/2024, End Date: 11/06/2024, Elapsed Days: 42 Current History: This is a pleasant 69-year-old male who treated for definitive XRT to the prostate. Patient had pretreatment PSA in the sixes and low-volume disease. Patient underwent 7000 cGy in 28 fractions over 42 elapsed days completing this on 11/06/2024. Current Medications: Per [facility] Allergies: Per Office [facility] Current Complaints / Review of Systems: As above Vital Signs: Performed on 12/04/2024 8:06 AM BMI - 23.989 kg/m2 (high), Height - 71 in, Weight - 172 lbs, Temperature - 97.4 f, Pulse - 66 /min, Respiration - 18 /min, O2 Sat - 96 %, Pain - 0, Fatigue - 0 and BP - 147/ 80 mm(hg)(high/). Physical Exam: General: Alert and oriented x 3. No acute distress. HEENT: Normocephalic, atraumatic. Extraocular Movements Intact: Pupils Equal, Round, Reactive to Light and Accommodation: Sclerae anicteric. Oral cavity is clear without lesions, masses or ulcers. NECK: Supple without supraclavicular or jugular lymphadenopathy. LUNGS: Clear to auscultation bilaterally without rales, rhonchi or wheeze. HEART: Regular rate and rhythm, normal S1 and S2 without murmur, gallop or rub. MUSCULOSKELETAL: No tenderness or percussion pain over the axial skeleton, scapulae or pelvis. ABDOMEN: Soft, nontender, nondistended without masses or organomegaly. Bowell sounds are present. EXTREMITIES: No peripheral edema is identified. Limited motor and sensory examination are grossly intact and symmetric bilaterally. NEUROLOGIC: Cranial nerves II ???XII are grossly intact. Normal sensation, strength 5/5 in all extremities, normal gait, no ataxia. Performance Status: KPS 90 Lab: PSA next visit Pathology: Primary, c61 - malignant neoplasm of prostate, Diagnosed 09/14/2024 (active) . Imaging: See HPI Impression: GS 7 left sided prostate cancer PLAN: Will get PSA prior to next visit RTC March 07, 2025 at 0900 hrs. or sooner if need be. Signed by: 12/04/2024 8:23:50 AM <<Signature on File>> Time spent with patient: CPT Code: * CPT Code: *
--- NOTE | 2024-12-11 10:00 | CT_ITS ---
WS: [id number] LDCT LUNG CANCER SCREENING TECHNIQUE: Noncontrast CT of the chest with coronal and sagittal reformatted images. CLINICAL INFORMATION: angela dep cig remission; 50pk yr; screening COMPARISON: 2023 DLP: 64.51 mGy.cm DIvol: Mean CTDIvol: 1.10 (mGy) All CT scans at [facility] use at least one of these dose optimization techniques: automated exposure control; mA and/or kV adjustment per patient size (includes targeted exams where dose is matched to clinical indication); or iterative reconstruction. FINDINGS: Moderate chronic emphysematous changes. Subsegmental atelectasis in the lower lobes. Bulla formation in the RIGHT upper lobe is unchanged. No axillary lymphadenopathy. No mediastinal or hilar lymphadenopathy. Tiny noncalcified subpleural nodule RIGHT lower lobe is stable. Few small subpleural nodules LEFT upper lobe. Aortic calcification. Coronary calcification. Small calcified nodule RIGHT thyroid. Small esophageal hiatal hernia. Adrenal glands are normal. Mild thoracic kyphosis. 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 CT/CT lung screening [id number] IMPRESSION: LUNG-RADS: 2-Benign Appearance or Behavior FOLLOW UP: 12 Month: Continue annual screening with LDCT
== END 2025-01-01 23:59 | disposition home or self-care (01) ==
LOC: RAD 12-12 → ONCMED 12-12 09:18
PROVIDERS: PCP Family Medicine; Visit Provider Family Medicine
DX: Z87.891 Personal history of nicotine dependence (principal); R91.8 Other nonspecific abnormal finding of lung field; E04.1 Nontoxic single thyroid nodule; I70.0 Atherosclerosis of aorta; K44.9 Diaphragmatic hernia without obstruction or gangrene
CPT/HCPCS: 71271; 99024

== ENCOUNTER → 2025-03-06 08:42 | Outpatient (BNVA) | payer MEDICARE, SELFPAY | PROVIDERS: PCP Family Medicine; Visit Provider Family Medicine | DX: E03.9 Hypothyroidism, unspecified (principal); Z85.46 Personal history of malignant neoplasm of prostate | CPT/HCPCS: 84153; 84439; 84443 ==

== ENCOUNTER 2025-03-07 08:15 | Oncology outpatient (recurring) (ONCR) | payer MEDICARE, SELFPAY ==
--- NOTE | 2025-03-07 08:44 | ONCRAD EPV_ITS ---
Radiation Oncology Established Patient Visit Patient: Dat Littlejohn [id number] : 1955 Age: 69 Sex: Male Dictated by: Ramón Smart Date of Service: 03/07/2025 Referring Physician(s) : Dr. Cliff Mcdonough Diagnosis: C61 - Malignant neoplasm of prostate, Diagnosed 09/14/2024 (Active) Radiotherapy to Date: Course: Prostate/sv, Treatment Site: Prostate/sv, Ref. ID: [id number], Energy: 15X, Dose/Fx (cGy): 250, #Fx: , Dose Correction (cGy): 0, Total Dose Delivered (cGy): 7,000, Start Date: 09/25/2024, End Date: 11/06/2024, Elapsed Days: 42 Current History: This is a 69-year-old male who is now 4 months from treatment to the prostate 7000 cGy in 28 fractions. He completed this on 11/06/2024. Patient denies any blood in the urine, blood in the stool, diarrhea, constipation, or new bony tenderness. PSA on 03/06/2025 was reported today at 3.36 which is down. Current Medications: albuterol sulfate 2.5 mg (3 mL) inhalation Q4H PRN albuterol sulfate 90 mcg/actuation (Ventolin HFA) 2 puffs inhalation Q6H PRN atorvastatin 80 mg PO DAILY [id number] 200-62.5-25 mcg (Trelegy Ellipta) 1 inh inhalation Q24H Allergies: No Known Allergies Allergy Current Complaints / Review of Systems: . Vital Signs: Performed on 03/07/2025 8:32 AM BMI - 23.125 kg/m2 (high), Height - 71 in, Weight - 165.8 lbs, Temperature - 97.3 f, Pulse - 60 /min, Respiration - 17 /min, O2 Sat - 96 %, Pain - 0, Fatigue - 0 and BP - 145/ 90 mm(hg)(high/). Physical Exam: General: Alert and oriented x 3. No acute distress. HEENT: Normocephalic, atraumatic. Extraocular Movements Intact: Pupils Equal, Round, Reactive to Light and Accommodation: Sclerae anicteric. Oral cavity is clear without lesions, masses or ulcers. NECK: Supple without supraclavicular or jugular lymphadenopathy. LUNGS: Clear to auscultation bilaterally without rales, rhonchi or wheeze. HEART: Regular rate and rhythm, normal S1 and S2 without murmur, gallop or rub. MUSCULOSKELETAL: No tenderness or percussion pain over the axial skeleton, scapulae or pelvis. ABDOMEN: Soft, nontender, nondistended without masses or organomegaly. Bowell sounds are present. EXTREMITIES: No peripheral edema is identified. Limited motor and sensory examination are grossly intact and symmetric bilaterally. NEUROLOGIC: Cranial nerves II ???XII are grossly intact. Normal sensation, strength 5/5 in all extremities, normal gait, no ataxia. Performance Status: KPS 90 Lab: None pending. Pathology: Primary, c61 - malignant neoplasm of prostate, Diagnosed 09/14/2024 (active) . Imaging: See HPI Impression: Prostate cancer-stable PLAN: Obtain a new PSA in 3 months RTC in 3 months or sooner if need be Signed by: 03/07/2025 8:43:23 AM <<Signature on File>> Time spent with patient: 15 minutes CPT Code: CPT Code:
== END 2025-04-02 23:59 | disposition home or self-care (01) ==
PROVIDERS: PCP Family Medicine; Visit Provider Family Medicine
DX: Z08 Encounter for follow-up examination after completed treatment for malignant neoplasm (principal); C61 Malignant neoplasm of prostate; Z92.3 Personal history of irradiation
CPT/HCPCS: 99213

== ENCOUNTER → 2025-04-19 10:32 | Outpatient (BNVA) | payer MEDICARE, SELFPAY | PROVIDERS: PCP Family Medicine; Visit Provider Family Medicine | DX: Z11.59 Encounter for screening for other viral diseases (principal); I10 Essential (primary) hypertension; E78.00 Pure hypercholesterolemia, unspecified; R73.03 Prediabetes; E03.9 Hypothyroidism, unspecified | CPT/HCPCS: 80053; 84439; 84443; 84481; 85025; 86803 ==

== ENCOUNTER 2025-06-11 12:07 | Oncology outpatient (recurring) (ONCR) | payer MEDICARE, SELFPAY ==
[2025-06-11 13:31] LABS: Prostate Specific Antigen 1.480 ng/mL (0-4)
--- NOTE | 2025-06-11 16:31 | ONCRAD EPV_ITS ---
Radiation Oncology Established Patient Visit Patient: Dat Littlejohn [id number] : 1955 Age: 70 Sex: Male Dictated by: Dr. Randall Rodríguez Date of Service: 06/11/2025 Referring Physician(s) : Diagnosis: C61 - Malignant neoplasm of prostate, Diagnosed 09/14/2024 (Active) Radiotherapy to Date: Course: Prostate/sv, Treatment Site: Prostate/sv, Ref. ID: [id number], Energy: 15X, Dose/Fx (cGy): 250, #Fx: , Dose Correction (cGy): 0, Total Dose Delivered (cGy): 7,000, Start Date: 09/25/2024, End Date: 11/06/2024, Elapsed Days: 42 Current History: Doing well. Good flow with 1 to 2 x nocturia. Bowels ok. Active. He does not smoke but does chew tobacco PSA at dx 5.28 03/07/2025 3.36 06/11/2025 (today) 1.48 Current Medications: Per katena Allergies: Per katena Current Complaints / Review of Systems: . Vital Signs: BMI - 22.455 kg/m2, Height - 71 in, Weight - 161 lbs, Temperature - 97.7 f, Pulse - 63 /min, Respiration - 17 /min, O2 Sat - 99 %, Pain - 0, Fatigue - 0 and BP - 118/ 53 mm(hg)(/low). Physical Exam: General: Alert and oriented x 3. No acute distress. No adenopathy. No pedal edema. Rectal omitted. . Performance Status: ECOG PS 0 Lab: PSA today 1.48 Pathology: Primary, c61 - malignant neoplasm of prostate, Diagnosed 09/14/2024 (active) . Imaging: none Impression: Doing well. Good biochemical control of disease thus far with rapid decline of PSA. Plan to see him again in 6 months with repeat PSA. Begged him to stop chewing tobacco. Signed by: 06/11/2025 4:29:55 PM <<Signature on File>> Time spent with patient: 30 minutes CPT Code: CPT Code:
== END 2025-07-03 23:59 | disposition home or self-care (01) ==
PROVIDERS: Radiology Radiation Oncology; PCP Family Medicine; Visit Provider Radiology Radiation Oncology
DX: C61 Malignant neoplasm of prostate (principal); Z92.3 Personal history of irradiation; F17.220 Nicotine dependence, chewing tobacco, uncomplicated
CPT/HCPCS: 36415; 84153; 99214